=== PATIENT | female | born 1945 | race Caucasian/White ===

== ENCOUNTER 2018-07-26 12:42 | Outpatient (CLI) | payer OTHER | END 2018-07-26 12:43 | disposition home or self-care (01) | LOC: DTY/OP 12:42 | PROVIDERS: ATTEND Surgery | DX: E66.01 Morbid (severe) obesity due to excess calories (principal) | CPT/HCPCS: 97802 ==

== ENCOUNTER 2018-09-10 12:44 | Outpatient (CLI) | payer MEDICARE ==
--- NOTE | 2018-09-10 13:05 | RAD ---
RADIOGRAPH CHEST 2 VIEWS: DATE: 09/10/2018 HISTORY: 72-year-old female with dyspnea FINDINGS: There is no airspace density, pulmonary edema, pleural effusion, pneumothorax, or cardiomegaly. There is mild hyperinflation consistent with COPD. IMPRESSION: 1. No acute cardiopulmonary findings. 2. At least mild emphysema.
[2018-09-10 17:41] LABS: #Basophils 0.1 thou/uL (0.0-0.2); #Eosinphils 0.2 thou/uL (0.0-0.7); #Lymphocytes 3.3 thou/uL (1.20-3.40); #Monocytes 0.7 thou/uL (0.11-0.59); #Neutrophils 7.1 thou/uL (1.40-6.50); %Basophils 0.9 % (0.0-1.0); %Eosinophils 2.1 % (0.0-10.0); %Monocytes 5.9 % (0.0-10.0); %Neutrophils 62.1 % (42.0-75.0); Hemoglobin 14.3 g/dL (12.0-16.0); Mean Corpuscular HGB CONC 34.4 g/dL (32.0-36.0); Mean Corpuscular Volume 89.9 fL (78.0-98.0); Mean Platelet Volume 7.3 fL (7.4-10.4); Platelet Count 268 thou/uL (130-400); RBC Distribution Width 11.7 % (11.5-14.5); Red Blood Cell (RBC) Count 4.61 mill/uL (4.20-5.40); White Blood Cell (WBC) Count 11.4 thou/uL (4.8-10.8)
[2018-09-10 17:59] LABS: ALT (SGPT) 36 U/L (8-55); AST (SGOT) 29 U/L (5-34); Albumin 4.4 g/dL (3.4-4.8); Alkaline Phosphatase 94 U/L (40-150); Anion Gap 13 mmol/L (10-20); BUN (Urea Nitrogen) 14 mg/dL (9.8-20.1); Bilirubin, Total 0.5 mg/dL (0.2-1.2); Calc. Creatinine Clearance 0 mL/min (70-130); Calcium 10.1 mg/dL (7.8-10.44); Carbon Dioxide 29 mmol/L (23-31); Chloride 101 mmol/L (98-107); Estimated GFR-MDRD 50; Globulin 3.4 g/dL (2.4-3.5); Glucose 147 mg/dL (80-115); HDL Cholesterol 50 mg/dL (>60 Neg Risk); Protein, Total 7.8 g/dL (6.0-8.3); Sodium 139 mmol/L (136-145); Triglycerides 149 mg/dL (Less than 150)
[2018-09-10 18:12] LABS: Cholesterol 175 mg/dl (< 200 Desired)
[2018-09-10 18:22] LABS: Free T4 (Free Thyroxine) 1.01 ng/dL (0.70-1.48); Thyroid Stimulating Hormone 2.041 uIU/mL (0.35-4.94)
[2018-09-10 18:26] LABS: LDL Cholesterol, Calculated 95 mg/dL
[2018-09-10 20:32] LABS: Hemoglobin A1c 10.2 % (4.0-6.0)
[2018-09-10 20:39] LABS: Creatinine, Urine 203.11 mg/dL (47-110); Microalbumin/Creat Ratio 44.3 mg/g (Less than 30)
== END 2018-09-10 12:45 | disposition home or self-care (01) ==
LOC: RAD 12:44
PROVIDERS: ATTEND Internal Medicine
DX: R06.00 Dyspnea, unspecified (principal); J43.9 Emphysema, unspecified
CPT/HCPCS: 36415; 71046; 80053; 80061; 82043; 83036; 84439; 84443; 85025; 87521

== ENCOUNTER 2018-11-27 10:44 | Day surgery (SDC) | payer MEDICARE ==
--- NOTE | 2018-11-27 13:46 | OP ---
DATE OF PROCEDURE: 11/27/2018 PRIMARY CARE PHYSICIAN: Amandeep Mercer MD CONTACT LENS CURVE GRINDER SURGEON: None. PROCEDURES PERFORMED: Colonoscopy, surveillance, with snare polypectomy. INDICATION: Personal history of colon polyps, last colonoscopy was 20 years ago. MEDICATIONS: See Anesthesia record. FINDINGS: After discussion of the risks, benefits, and alternatives of the procedure, informed consent was obtained and witnessed. Pre-endoscopic cardiopulmonary examination was satisfactory. Time-out was performed before sedation was achieved. Sedation was achieved with Anesthesia assistance in the endoscopy unit. A digital rectal exam was performed, which was unremarkable. A Pentax adult colonoscope was inserted into the anus and passed forward to the cecum in the usual fashion. The cecal base was identified by the appendiceal orifice as well as the ileocecal valve. The terminal ileum was intubated and the ileal mucosa appeared normal. The colonoscope was slowly withdrawn in a gradual and circumferential manner with careful examination of the entire colonic mucosa. The quality of the prep was good. In the transverse colon, there were 2 small sessile polyps measuring 2 to 3 mm in diameter. These were completely removed with cold snare and retrieved for pathology. In the descending colon, there was another sessile polyp measuring 2 mm in diameter. This was completely removed with cold snare and retrieved for pathology. In the rectum, there was another sessile polyp measuring 3 mm in diameter. This was completely removed with cold snare and retrieved for pathology. Retroflexion in the rectum was unremarkable. The colonoscope was completely withdrawn and the patient allowed to recover. The patient tolerated the procedure well. There were no immediate postprocedure complications. IMPRESSION: 1. Two small transverse colon polyps, completely removed with cold snare and retrieved for pathology. 2. One small descending colon polyp, completely removed with cold snare and retrieved for pathology. 3. One small rectal polyp, completely removed with cold snare and retrieved for pathology. 4. Otherwise normal colonoscopy to the terminal ileum. RECOMMENDATIONS: 1. Follow up pathology on the colon polyps. 2. Repeat colonoscopy interval to be based on pathology results. 3. Discharge home on a regular diet. Job ID: [id number]
[2018-11-27] MEDS ORDERED: PHENYLEPHRINE-NS 100 MCG/ML 10 ML SYRINGE ONE (17:19)
[2018-11-27] MEDS ORDERED: PROPOFOL 200 MG/20 ML VIAL ONE (17:19)
== END 2018-11-27 13:50 | disposition home or self-care (01) ==
LOC: SDC 10:44
PROVIDERS: ATTEND Internal Medicine
PROC: 0DBM8ZZ Excision of Descending Colon, Via Natural or Artificial Opening Endoscopic (ICD-10-PCS; principal; 2018-11-27)
PROC: 0DBP8ZZ Excision of Rectum, Via Natural or Artificial Opening Endoscopic (ICD-10-PCS; 2018-11-27)
PROC: 0DBL8ZZ Excision of Transverse Colon, Via Natural or Artificial Opening Endoscopic (ICD-10-PCS; 2018-11-27)
DX: Z12.11 Encounter for screening for malignant neoplasm of colon (principal); K63.5 Polyp of colon; D12.3 Benign neoplasm of transverse colon; E78.5 Hyperlipidemia, unspecified; I10 Essential (primary) hypertension; I25.10 Atherosclerotic heart disease of native coronary artery without angina pectoris; I25.2 Old myocardial infarction; F17.200 Nicotine dependence, unspecified, uncomplicated; E11.9 Type 2 diabetes mellitus without complications; F32.9 Major depressive disorder, single episode, unspecified; G47.30 Sleep apnea, unspecified; Z88.5 Allergy status to narcotic agent; Z86.010 Personal history of colon polyps; Z99.89 Dependence on other enabling machines and devices; Z79.4 Long term (current) use of insulin; Z79.02 Long term (current) use of antithrombotics/antiplatelets; Z79.82 Long term (current) use of aspirin; Z79.899 Other long term (current) drug therapy
CPT/HCPCS: 36416; 88305; J2704

== ENCOUNTER 2019-04-21 13:12 | Observation (INO) | payer MEDICARE ==
--- NOTE | 2019-04-21 14:02 | RAD ---
PORTABLE UPRIGHT FRONTAL CHEST RADIOGRAPH: 04/21/2019 HISTORY: Intermittent chest pain. COMPARISON: 09/10/2018 FINDINGS: There is diffuse increased linear interstitial density and pulmonary hyperinflation, consistent with COPD and unchanged. No pneumothorax, pleural fluid, focal consolidation or alveolar edema. IMPRESSION: No acute findings. POS: WYATT
[2019-04-21 14:04] LABS: #Eosinphils 0.1 thou/uL (0.0-0.7); #Lymphocytes 2.2 thou/uL (1.20-3.40); #Monocytes 0.7 thou/uL (0.11-0.59); #Neutrophils 6.9 thou/uL (1.40-6.50); %Basophils 0.5 % (0.0-1.0); %Eosinophils 1.2 % (0.0-10.0); %Monocytes 6.9 % (0.0-10.0); %Neutrophils 69.4 % (42.0-75.0); Mean Corpuscular HGB CONC 34.6 g/dL (32.0-36.0); Mean Corpuscular Hemoglobin 32.1 pg (27.0-31.0); Mean Corpuscular Volume 92.7 fL (78.0-98.0); Mean Platelet Volume 7.9 fL (7.4-10.4); Platelet Count 249 thou/uL (130-400); RBC Distribution Width 11.7 % (11.5-14.5); Red Blood Cell (RBC) Count 4.35 mill/uL (4.20-5.40)
[2019-04-21] MEDS ORDERED: Aspirin Chewable 81 MG TAB ONE (14:16)
[2019-04-21 14:26] LABS: ALT (SGPT) 25 U/L (8-55); AST (SGOT) 21 U/L (5-34); Albumin 4.2 g/dL (3.4-4.8); Alkaline Phosphatase 76 U/L (40-110); Anion Gap 12 mmol/L (10-20); BUN (Urea Nitrogen) 13 mg/dL (9.8-20.1); Bilirubin, Total 0.5 mg/dL (0.2-1.2); Calc. Creatinine Clearance 0 mL/min (70-130); Carbon Dioxide 29 mmol/L (23-31); Chloride 100 mmol/L (98-107); Estimated GFR-MDRD 35; Globulin 2.5 g/dL (2.4-3.5); Glucose 254 mg/dL (83-110); Magnesium 1.9 mg/dL (1.6-2.6); Potassium 4.3 mmol/L (3.5-5.1); Protein, Total 6.7 g/dL (6.0-8.3); Sodium 137 mmol/L (136-145)
[2019-04-21] MEDS ORDERED: HYDROcodone/Acetaminophen 7.5/325 mg Tablet PO PRN ×2 (17:12)
[2019-04-21] MEDS ORDERED: Acetaminophen 325 MG TAB PO PRN (17:12)
[2019-04-21] MEDS ORDERED: Senokot S 8.6-50 MG TAB PO PRN (17:12)
[2019-04-21] MEDS ORDERED: Sodium Chloride 0.9% 1,000 ML IV SCH (17:15)
[2019-04-21] MEDS ORDERED: Dextrose 5% in Water 1,000 ML IV PRN (17:19)
[2019-04-21] MEDS ORDERED: Dextrose 50% Abboject 50 ML SYRINGE SLOW IVP PRN (17:19)
[2019-04-21 17:35] VITALS: BMI 38.7
[2019-04-21 17:35] LABS: Troponin I 0.013 ng/mL (< 0.028)
--- NOTE | 2019-04-21 17:55 | PDOC.HHP ---
Hospitalist HPI - History of Present Illness Intermittent chest pain and back pain x3 days History of Present Illness: 73F presents to the ED today the c/o of 3 days of sharp chest pain and pain in her shoulders which radiates outward. Reports it started 3 days. Denies any precipating factors. Reports history of CAD, AR x2 and 2 cardiac stents. Reports pain is somewhat similar to one of her MIs. Denies nausea or diaphoresis. Reports pain is intermittent, has woken her up from sleep. Reports history of muscles spasms and current pain is different. Denies abdominal pain, v/d. Reports hx of COPD and uses inhaler, and uses O2 at home. PMH: DM II, CAD, COPD, HTN, hyperlipidemia, muscle spasms, angina, depression, RANDY ED Course: EKG: NSR, 78, Incomplete right bundle branch block, t waves normal First troponin undetectable, VERNA, Will admit for chest pain, ACS r/o Hospitalist ROS - Review of Systems Constitutional: denies: fever, chills, sweats, weakness, malaise, other Eyes: denies: pain, vision change, conjunctivae inflammation, eyelid inflammation, redness, other ENT: denies: ear pain, ear discharge, nose pain, nose discharge, nose congestion , mouth pain, mouth swelling, throat pain, throat swelling, other Respiratory: reports: cough, shortness of breath Cardiovascular: reports: chest pain Gastrointestinal: denies: nausea, vomiting, abdominal pain, diarrhea, constipation, melena, hematochezia, other Genitourinary: denies: dysuria, frequency, incontinence, hematuria, retention, other Musculoskeletal: reports: shoulder pain (bilateral, pain under scapula, intermittent) Skin: denies: rash, lesions, isacc, bruising, other Neurological: denies: weakness, numbness, incoordination, change in speech, confusion, seizures, other - Medication Medications: HumuLIN L MonApr 21, 2019 14:22 suspension : Strength - 100 unit/mL : SUBCUTANEOUS Patient Dose: unk. clopidogrel MonApr 21, 2019 14:22 tablet : Strength - 75 mg : ORAL Patient Dose: unk. citalopram MonApr 21, 2019 14:22 tablet : Strength - 10 mg : ORAL Patient Dose: unk. lisinopril MonApr 21, 2019 14:23 tablet : Strength - 10 mg : ORAL Patient Dose: unk. ProAir HFA MonApr 21, 2019 14:24 HFA aerosol inhaler : Strength - 90 mcg : INHALATION Patient Dose: unk. aspirin oral MonApr 21, 2019 14:25 tablet : Strength - 325 mg : ORAL Patient Dose: 1 tab(s) Oral once a day (at bedtime). Nitro oral MonApr 21, 2019 14:40 capsule, extended release : Strength - 2.5 mg : ORAL Patient Dose: unk. Hospitalist History - Past Medical History Cardiac: reports: CAD, HTN, Hyperlipidemia Pulmonary: reports: angina, asthma, COPD, high cholesterol, hypertension, lung disease Gastrointestinal: reports: Other (polyps) Heme/Onc: reports: B12 deficiency Psych: reports: Depression Musculoskeletal: denies: no pertinent history, Chronic low back pain, Bursitis, Osteoarthritis, Other Endocrine: reports: Diabetes - Past Surgical History Past Surgical History: reports: Cataract Removal, Tonsillectomy Other Surgical History: colonscopy, cardiac stent x2, right wrist surgery, Heart cath 2016, - Family History Family History: reports: cardiac disorder, cerebrovascular accident, diabetes mellitus, hypertension - Social History Smoking Status: Former smoker Alcohol: reports: Occassional Drugs: reports: none Living Situation: With Family Activity level: independent ambulation - Exam General Appearance: awake alert Eye: PERRL ENT: normocephalic atraumatic, moist mucosa Neck: supple, no JVD Heart: RRR, normal peripheral pulses Respiratory: CTAB, normal chest expansion Gastrointestinal: soft, non-tender Extremities: no edema Skin: normal turgor Neurological: normal sensation to touch, no focal deficits Musculoskeletal: normal tone, normal strength Psychiatric: normal affect, A&O x 3 Hospitalist Results - Labs Result Diagrams: 04/21/19 13:54 04/21/19 13:54 Lab results: WBC 10.0 thou/uL (4.8-10.8) 04/21/19 13:54 Hgb 14.0 g/dL (12.0-16.0) 04/21/19 13:54 Hct 40.4 % (36.0-47.0) 04/21/19 13:54 MCV 92.7 fL (78.0-98.0) 04/21/19 13:54 Plt Count 249 thou/uL (130-400) 04/21/19 13:54 Neutrophils % 69.4 % (42.0-75.0) 04/21/19 13:54 Sodium 137 mmol/L (136-145) 04/21/19 13:54 Potassium 4.3 mmol/L (3.5-5.1) 04/21/19 13:54 Chloride 100 mmol/L (98-107) 04/21/19 13:54 Carbon Dioxide 29 mmol/L (23-31) 04/21/19 13:54 BUN 13 mg/dL (9.8-20.1) 04/21/19 13:54 Creatinine 1.46 mg/dL (0.6-1.1) H 04/21/19 13:54 Glucose 254 mg/dL (83-110) H 04/21/19 13:54 Calcium 9.0 mg/dL (7.8-10.44) 04/21/19 13:54 Total Bilirubin 0.5 mg/dL (0.2-1.2) 04/21/19 13:54 AST 21 U/L (5-34) 04/21/19 13:54 ALT 25 U/L (8-55) 04/21/19 13:54 Alkaline Phosphatase 76 U/L (40-110) 04/21/19 13:54 Troponin I 0.013 ng/mL (< 0.028) 04/21/19 16:53 Serum Total Protein 6.7 g/dL (6.0-8.3) 04/21/19 13:54 Albumin 4.2 g/dL (3.4-4.8) 04/21/19 13:54 Hospitalist H&P A/P - Problem (1) Chest pain Code(s): R07.9 - CHEST PAIN, UNSPECIFIED Status: Acute (2) Dyslipidemia Code(s): E78.5 - HYPERLIPIDEMIA, UNSPECIFIED Status: Chronic (3) Hypertension Code(s): I10 - ESSENTIAL (PRIMARY) HYPERTENSION Status: Chronic (4) COPD (chronic obstructive pulmonary disease) Status: Chronic (5) VERNA (acute kidney injury) Code(s): N17.9 - ACUTE KIDNEY FAILURE, UNSPECIFIED Status: Acute (6) CAD (coronary artery disease) Code(s): I25.10 - ATHSCL HEART DISEASE OF [place] CORONARY ARTERY W/O ANG PCTRS Status: Chronic (7) RANDY (obstructive sleep apnea) Code(s): G47.33 - OBSTRUCTIVE SLEEP APNEA (ADULT) (PEDIATRIC) Status: Chronic (8) Depression Code(s): F32.9 - MAJOR DEPRESSIVE DISORDER, SINGLE EPISODE, UNSPECIFIED Status : Chronic - Plan Plan: Chest pain: Trend troponins, heart monitor, ASA, fasting lipids, TSH, consult cardiology, patient had a negative stress test within last year Continue home meds once reconciled VERNA: gentle hydration, hold lisinopril COPD/Asthma: Duonebs as needed PRN, O2 as needed to keep PO2 above 92 DM II: accuchecks ACHS, SS for coverage HTN: hold lisinopril, PRN meds as needed Dyslipidemia: will restart crestor, check lipids Discussed with Dr. Summers, agrees with plan
[2019-04-21] MEDS ORDERED: PROVENTIL INHALER 6.7 G (200 INHALATIONS) INH PRN (18:41)
[2019-04-21] MEDS ORDERED: Melatonin 3 MG TAB PO PRN (18:42)
[2019-04-21] MEDS ORDERED: Sodium Chloride 0.65% Nasal 44 ML BOT EA NARE PRN (19:51)
[2019-04-21] MEDS: guaiFENesin/DM ER PO SCH (20:28)
[2019-04-21] MEDS: Heparin 5,000 UNITS/ML VIAL SC SCH (20:29)
[2019-04-21 20:41] LABS: Troponin I 0.019 ng/mL (< 0.028)
[2019-04-22 05:03] LABS: #Basophils 0.1 thou/uL (0.0-0.2); #Eosinphils 0.2 thou/uL (0.0-0.7); #Lymphocytes 3.2 thou/uL (1.20-3.40); #Monocytes 0.8 thou/uL (0.11-0.59); #Neutrophils 4.7 thou/uL (1.40-6.50); %Basophils 0.9 % (0.0-1.0); %Eosinophils 2.4 % (0.0-10.0); %Lymphocytes 35.9 % (21.0-51.0); %Monocytes 8.8 % (0.0-10.0); Hemoglobin 13.3 g/dL (12.0-16.0); Mean Corpuscular HGB CONC 33.8 g/dL (32.0-36.0); Mean Corpuscular Hemoglobin 30.9 pg (27.0-31.0); Mean Corpuscular Volume 91.3 fL (78.0-98.0); Mean Platelet Volume 7.9 fL (7.4-10.4); Platelet Count 238 thou/uL (130-400); RBC Distribution Width 11.7 % (11.5-14.5); Red Blood Cell (RBC) Count 4.32 mill/uL (4.20-5.40)
[2019-04-22 06:01] LABS: ALT (SGPT) 24 U/L (8-55); AST (SGOT) 19 U/L (5-34); Albumin 3.8 g/dL (3.4-4.8); Alkaline Phosphatase 72 U/L (40-110); Anion Gap 15 mmol/L (10-20); BUN (Urea Nitrogen) 13 mg/dL (9.8-20.1); Bilirubin, Total 0.6 mg/dL (0.2-1.2); Calc. Creatinine Clearance 83 mL/min (70-130); Calcium 8.8 mg/dL (7.8-10.44); Carbon Dioxide 24 mmol/L (23-31); Cardiac Risk 7.2 (Less than 4.5); Chloride 103 mmol/L (98-107); Cholesterol 237 mg/dl (< 200 Desired); Estimated GFR-MDRD 51; Globulin 2.5 g/dL (2.4-3.5); Glucose 176 mg/dL (83-110); HDL Cholesterol 33 mg/dL (>60 Neg Risk); LDL Cholesterol, Calculated 151 mg/dL; Potassium 3.8 mmol/L (3.5-5.1); Protein, Total 6.3 g/dL (6.0-8.3); Sodium 138 mmol/L (136-145); Triglycerides 266 mg/dL (Less than 150)
[2019-04-22] MEDS: guaiFENesin/DM ER PO SCH ×2 (07:39→22:36)
[2019-04-22] MEDS: Famotidine 20 MG TAB PO SCH (07:40)
[2019-04-22] MEDS: Heparin 5,000 UNITS/ML VIAL SC SCH ×3 (07:41→22:36)
[2019-04-22 08:37] LABS: Bilirubin Negative (Negative); Blood, Urine Negative (Negative); Clarity Clear (Clear); Glucose, Urine (Dipstick) Normal (Negative); Leukocyte Negative Leu/uL (Negative); Nitrite Negative (Negative); Protein, Urine (Dipstick) Negative (Neg-Trace); RBC/HPF 0-3 HPF (0-3); Squamous Epithelial 0-3 HPF (0-3); Urobilinogen Normal mg/dL (Less than 2); WBC/HPF 0-3 HPF (0-3)
[2019-04-22 08:39] LABS: Bacteria/HPF 1+ HPF (None Seen)
[2019-04-22 08:41] LABS: Urine Culture Reflex Yes Yes
--- NOTE | 2019-04-22 16:12 | PDOC.HOSPP ---
- Subjective Encounter Date: 04/22/19 Encounter Time: 16:15 Subjective: f/u for CP r/o undergoing 2-day FIRE CONTROL OFFICER. No new complaints. - Objective Vital Signs & Weight: Vital Signs (12 hours) Temp Pulse Resp BP Pulse Ox 04/22/19 10:48 98 F 72 20 161/70 H 96 04/22/19 07:42 97.9 F 83 24 H 144/86 H 92 L Weight Weight 240 lb 5 oz I&O: 04/21/19 04/22/19 04/23/19 06:59 06:59 06:59 Intake Total 1392 Output Total 1900 Balance -508 Result Diagrams: 04/22/19 04:16 04/22/19 04:16 Additional Labs: Accuchecks 04/22/19 04/21/19 10:50 20:38 POC Glucose 220 H 231 H Laboratory Tests 04/21/19 04/21/19 04/21/19 13:54 13:54 16:53 Magnesium 1.9 Troponin I 0.013 0.013 Triglycerides Cholesterol LDL Cholesterol, Calc HDL Cholesterol TSH 3rd Generation 04/21/19 04/22/19 04/22/19 19:48 04:16 04:16 Magnesium Troponin I 0.019 Triglycerides 266 H Cholesterol 237 H LDL Cholesterol, Calc 151 HDL Cholesterol 33 TSH 3rd Generation [id number] Radiology Reviewed by me: Yes (PCXR - diffuse chronic changes consistent with COPD) EKG Reviewed by me: Yes (Tele - SR) Hospitalist ROS - Medication Medications: Active Medications Generic Name Dose Route Start Last Admin Trade Name Freq PRN Reason Stop Dose Admin Albuterol/Ipratropium 3 ml 04/22/19 13:00 04/22/19 13:54 Duoneb IPPB Not Given U8BV-RH DAVID Famotidine 20 mg 04/22/19 09:00 04/22/19 07:40 Pepcid PO 20 mg DAILY DAVID Administration Guaifenesin/Dextromethorphan 1 tab 04/21/19 21:00 04/22/19 07:39 Mucinex Dm PO 1 tab Q12HR DAVID Administration Heparin Sodium (Porcine) 5,000 units 04/21/19 21:00 04/22/19 15:23 Heparin SC Not Given TID DAVID Melatonin 3 mg 04/21/19 18:42 04/21/19 21:52 Melatonin PO 3 mg HSPRN PRN Administration Insomnia Sodium Chloride 0.5 ml 04/21/19 19:51 04/21/19 20:25 [place] Nasal [place] 0.65% EA NARE 2 sprays TIDPRN PRN Administration Nasal Congestion - Exam General Appearance: NAD, awake alert Eye: PERRL, anicteric sclera ENT: normocephalic atraumatic, no oropharyngeal lesions Neck: supple, symmetric, no JVD, no thyromegaly, no carotid bruit Respiratory - other findings: diminished in bases bilat Gastrointestinal: soft, non-tender, non-distended, normal bowel sounds, no palpable masses Extremities: no cyanosis, no clubbing, no edema Skin: normal turgor, no lesions Neurological: cranial nerve grossly intact, no new deficit Musculoskeletal: normal tone, normal strength Psychiatric: normal affect, A&O x 3 Hosp A/P (1) Chest pain Code(s): R07.9 - CHEST PAIN, UNSPECIFIED Status: Acute Plan: 2-day FIRE CONTROL OFFICER pending, continue telemetry monitoring (2) VERNA (acute kidney injury) Code(s): N17.9 - ACUTE KIDNEY FAILURE, UNSPECIFIED Status: Acute Plan: Improved, likely mild dehydration, avoid nephrotoxic meds and limit contrast exposure (3) Chronic respiratory failure with hypoxia Code(s): J96.11 - CHRONIC RESPIRATORY FAILURE WITH HYPOXIA Status: Chronic Plan: Continue O2 supplementation at baseline requirement currently (4) CAD (coronary artery disease) Code(s): I25.10 - ATHSCL HEART DISEASE OF [place] CORONARY ARTERY W/O ANG PCTRS Status: Chronic Plan: FIRE CONTROL OFFICER 2-day protocol pending (5) COPD (chronic obstructive pulmonary disease) Status: Chronic Plan: No exacerbation (6) Hypertension Code(s): I10 - ESSENTIAL (PRIMARY) HYPERTENSION Status: Chronic Qualifiers: Hypertension type: essential hypertension Qualified Code(s): I10 - Essential (primary) hypertension - Plan plan discussed w/ family, respiratory therapy, out of bed/ambulate, DVT proph w/ SCDs Stable currently Continue 2-Day FIRE CONTROL OFFICER protocol Continue Plavix 75mg daily Resume home DM meds
--- NOTE | 2019-04-22 16:53 | CON ---
DATE OF CONSULTATION: HISTORY OF PRESENT ILLNESS: Alexy Rod is a 73-year-old white female with coronary artery disease, admitted with upper back and chest discomfort. She was evaluated by Dr. Mancilla in June 2007. She had chest discomfort and had had an abnormal Cardiolite scan. She underwent cardiac catheterization, was found to have subtotal mid right coronary artery occlusion. However, the distal posterior descending artery filled retrograde from the left system. It was felt best to treat her medically with excellent collaterals to the right system. She apparently did not follow up with Dr. Mancilla after that, but was followed by a independent driver in [place]. In November 2015, she underwent placement of a stent in the second obtuse marginal and in the left anterior descending. The right coronary was apparently totally occluded at that time. All of this information is from previous physician descriptions, I do not have the actual cath report. In January 2017, she had a Cardiolite which revealed apical-inferior ischemia. One of physician report states that she underwent cardiac catheterization, but no intervention at that time; however, the patient does not recall having a catheterization at that time. In April 2018, she began to be followed by Dr. Lin. Echo at that time revealed ejection fraction of 55% to 60% with trace mitral regurgitation and physiologic tricuspid regurgitation. She underwent cardiac PET scan, which was probably normal. She now is admitted with 3 days of increasing upper back and chest discomfort. Today, she states that her chest is not bothering her, it is mostly her upper back. She describes as somewhat of a pressure sensation in her upper back in multiple areas. The pain is not pleuritic in nature. It is not exacerbated by movement. The discomfort will last a few seconds to one or 2 minutes. She also complains of sharp stabbing pain in front of her chest, which is not occurring today. This discomfort will last for a few seconds at a time. Cardiac enzymes have been unremarkable. PAST MEDICAL HISTORY: Hypertension, hyperlipidemia (Crestor was stopped several months ago due to muscle spasm, however, she states that muscle spasm did not improve after stopping the Crestor), asthma, coronary artery disease, obstructive sleep apnea, COPD, diabetes. OPERATIONS: Tonsillectomy, right ganglion cyst removal, stent placement in the second obtuse marginal and the LAD, cataract removal. MEDICATIONS: 1. Albuterol 1 puff q.4 hours p.r.n. 2. Aspirin 81 daily. 3. Clopidogrel 75 mg daily. 4. Citalopram 40 mg q.p.m. 5. Furosemide 20 q.a.m. 6. Tradjenta 5 mg daily. 7. Lisinopril 10 mg daily. 8. Singulair 10 mg at bedtime. 9. NPH 80 units at bedtime. 10. Primidone 50 b.i.d. ALLERGIES: DARVON. SOCIAL HISTORY: Smoked one pack per day, but states she stopped 4 years ago. She does not drink. PHYSICAL EXAMINATION: VITAL SIGNS: Blood pressure 161/70, pulse 72. HEENT: PERRL. NECK: Supple. CHEST: Reveals distant breath sounds. CARDIOVASCULAR: S1, S2 normal without any S3, S4, or murmurs. Carotid upstrokes normal without bruits. ABDOMEN: Obese. Normal bowel sounds. No tenderness. EXTREMITIES: Revealed no clubbing, cyanosis, or edema. NEUROLOGIC: Grossly intact. SKIN: Warm and dry. MUSCULOSKELETAL: Revealed no palpable back or chest wall tenderness. LABORATORY DATA: EKG reveals normal sinus rhythm with anteroseptal infarction similar to office EKG. Cardiac enzymes were unremarkable. CBC is normal. Sodium 138, potassium 3.8, chloride 108, carbon dioxide 24, BUN 13, creatinine 1.07. Cholesterol 237, triglycerides 266, HDL 33, LDL 151. TSH is normal. IMPRESSION: 1. Atypical chest and upper back discomfort with pain lasting a few seconds to one or 2 minutes. 2. History of coronary artery disease, status post stent placement in November 2015 in the second obtuse marginal and the LAD. Also at that time, the right coronary artery was totally occluded. 3. Probably normal cardiac PET in April 2018. 4. Hypertension. 5. Hypercholesterolemia under poor control, off Crestor for some time; however, her muscle spasms did not improve. 6. Diabetes. 7. Former smoker. 8. Obstructive sleep apnea. 9. Chronic obstructive pulmonary disease. PLAN: Ms. Rod's chest and upper back discomfort are atypical and she does have normal cardiac enzymes. She will undergo Lexiscan Cardiolite testing for further evaluation. Her usual independent driver, Dr. Lin will return in the morning. Job ID: [id number] [facility]
[2019-04-22] MEDS: HumaLOG 300 UNITS/3 ML VIAL SC PRN (17:07)
[2019-04-22] MEDS ORDERED: Regadenoson 0.4 MG/5 ML SYRINGE ONE (17:29)
[2019-04-22] MEDS ORDERED: Citalopram 20 MG TAB PO SCH (21:00)
[2019-04-22] MEDS ORDERED: Montelukast Sodium 10 mg Tablet PO SCH (21:00)
[2019-04-22] MEDS ORDERED: Rosuvastatin 20 MG TAB PO SCH (21:00)
[2019-04-22] MEDS: Primidone 50 MG TAB PO SCH (22:36)
[2019-04-23 05:00] LABS: Anion Gap 13 mmol/L (10-20); BUN (Urea Nitrogen) 12 mg/dL (9.8-20.1); Calc. Creatinine Clearance 77 mL/min (70-130); Calcium 8.9 mg/dL (7.8-10.44); Carbon Dioxide 26 mmol/L (23-31); Chloride 101 mmol/L (98-107); Estimated GFR-MDRD 47; Glucose 285 mg/dL (83-110); Potassium 4.2 mmol/L (3.5-5.1); Sodium 136 mmol/L (136-145)
[2019-04-23] MEDS: HumaLOG 300 UNITS/3 ML VIAL SC PRN ×2 (06:34→11:34)
[2019-04-23] MEDS ORDERED: Alogliptin 25 MG TAB PO SCH (09:00)
[2019-04-23] MEDS ORDERED: Clopidogrel Bisulfate 75 MG TAB PO SCH (09:00)
[2019-04-23] MEDS: Primidone 50 MG TAB PO SCH (09:03)
[2019-04-23] MEDS: Famotidine 20 MG TAB PO SCH (09:03)
[2019-04-23] MEDS: guaiFENesin/DM ER PO SCH (09:04)
[2019-04-23] MEDS: Heparin 5,000 UNITS/ML VIAL SC SCH (09:04)
--- NOTE | 2019-04-23 09:11 | NM ---
Nuclear medicine Cardiac myocardial perfusion SPECT Ejection fraction study Wall motion cine: DATE:04/22/2019 12:36 PM INDICATION: Chest pain TECHNIQUE: Number of days:2 Rest Study: Technetium 99m-sestamibi (Cardiolite) dose:33.00 mCi Stress study: Technetium 99m-sestamibi (Cardiolite) dose:31.80 mCi FINDINGS: Cardiac (myocardial perfusion) SPECT No reversible myocardial perfusion defect is evident. There is a mild-sized fixed defect involving th e left ventricular apex on both the stress and rest images likely related to overlying soft tissue attenuation. Ejection fraction study Left ventricular EF = 76% Wall motion cine Normal wall motion and thickening IMPRESSION: Probably normal myocardial perfusion evaluation. No definite scintigraphic evidence of reversible myocardial ischemia. Mild-sized fixed defect involvi ng the left ventricular apex on both the rest and stress images is likely related to overlying soft tissue attenuation. The estimated LVEF is 76%.
[2019-04-23 11:39] VITALS: BP 133/59; TEMP 98.1
--- NOTE | 2019-04-24 01:43 | DIS ---
DATE OF ADMISSION: 04/21/2019 DATE OF DISCHARGE: 04/23/2019 DISCHARGE DIAGNOSES: 1. Chest pain secondary to musculoskeletal etiology. 2. Acute kidney injury on chronic kidney disease, stage 3. 3. Chronic hypoxic respiratory failure on chronic oxygen supplementation at 2 to 3 L/minute by nasal cannula. 4. Coronary artery disease, chronic and stable. 5. Chronic obstructive pulmonary disease, stable. 6. Hypertension, stable. 7. Hyperlipidemia, uncontrolled. CONSULTATIONS: Dr. Romero and Dr. Lin with Cardiology Service. PERTINENT LABORATORY AND X-RAY FINDINGS: Creatinine ranged between 1.07 to 1.46. Estimated GFR ranged between 35-51. Troponin I negative x3. Total cholesterol 237, triglycerides 266, HDL 33, LDL 151. TSH 3.92. CBC within normal limits. Urine culture dated 04/22/2019 showed no growth at 24 hours. Portable chest x-ray dated 04/21/2019 showed no acute cardiopulmonary process. Cardiolite stress test dated 04/22/2019 showed mild sized fixed defect in the left ventricular apex consistent with breast attenuation, calculated ejection fraction of 76%. HOSPITAL COURSE: The patient was observed on the telemetry unit after initially presenting with chest and back pain. The patient with a known history of coronary artery disease, on chronic Plavix, undergoing serial cardiac biomarkers, which were negative x3. The patient proceeded to Cardiolite stress testing showing a fixed defect at the left ventricular apex, likely due to breast attenuation artifact. Consultation was obtained by the Cardiology Service with recommendations for ongoing medical management and no acute intervention. The patient was initiated on Crestor 20 mg daily with recommendations for dietary management in addition to medical therapy. Vital signs remained stable throughout the hospital course and the patient continued on her baseline oxygen requirement at 2 L/minute by nasal cannula continuously. I have examined the patient at the time of discharge and discussed followup instructions. The patient overall clinically stable and ready for discharge on 04/23/2019. DISCHARGE MEDICATIONS: 1. ProAir HFA one puff inhaled q.4 hours p.r.n. 2. Citalopram 40 mg p.o. at bedtime. 3. Plavix 75 mg p.o. daily. 4. Lasix 20 mg p.o. q.a.m., hold for 72 hours. 5. Tradjenta 5 mg p.o. daily. 6. Lisinopril 10 mg p.o. daily, hold x72 hours. 7. Singulair 10 mg p.o. at bedtime. 8. NPH insulin 80 units subcutaneously at bedtime. 9. Primidone 50 mg p.o. b.i.d. 10. Crestor 20 mg p.o. at bedtime. FOLLOWUP: 1. The patient may follow up with her primary care provider, Dr. Amandeep Mercer within 7 to 10 days of discharge. 2. The patient will follow up with Dr. David Lin within 1 week. CONDITION ON DISCHARGE: Stable. ACTIVITY: [place]. DIET: Heart healthy and ADA. CODE STATUS: Full. DISPOSITION: To home on 04/23/2019. Job ID: [id number]
[2019-04-24] MEDS ORDERED: Isosorbide Mononitrate (ER) 30 MG TAB PO SCH (09:00)
== END 2019-04-23 14:30 | disposition home or self-care (01) ==
LOC: ERS 13:12 → 2SW 17:28
PROVIDERS: ADMIT Internal Medicine; ATTEND Internal Medicine
DX: R07.89 Other chest pain (principal); I12.9 Hypertensive chronic kidney disease with stage 1 through stage 4 chronic kidney disease, or unspecified chronic kidney disease; N18.3 Chronic kidney disease, stage 3 (moderate); N17.9 Acute kidney failure, unspecified; I25.10 Atherosclerotic heart disease of native coronary artery without angina pectoris; E11.9 Type 2 diabetes mellitus without complications; E78.00 Pure hypercholesterolemia, unspecified; E78.5 Hyperlipidemia, unspecified; G47.33 Obstructive sleep apnea (adult) (pediatric); J96.11 Chronic respiratory failure with hypoxia; J44.9 Chronic obstructive pulmonary disease, unspecified; Z79.82 Long term (current) use of aspirin; Z79.84 Long term (current) use of oral hypoglycemic drugs; Z79.899 Other long term (current) drug therapy; Z88.5 Allergy status to narcotic agent; Z87.891 Personal history of nicotine dependence
CPT/HCPCS: 71045; 78452; 80048; 80053; 80061; 81001; 82962 ×3; 83735; 84484 ×2; 85025; 87086; 93005; 93017; 94640 ×4; 96360; 96361 ×2; 96372 ×2; 97139; 99285; A9500; G0378 ×4; 36415; 36416; 84443; J1644; J2785; J7620

== ENCOUNTER 2019-11-01 12:41 | Observation (INO) | payer MEDICARE, OTHER ==
[2019-11-01 13:09] LABS: #Basophils 0.1 thou/uL (0.0-0.2); #Eosinphils 0.1 thou/uL (0.0-0.7); #Lymphocytes 1.6 thou/uL (1.20-3.40); #Neutrophils 8.6 thou/uL (1.40-6.50); %Basophils 0.5 % (0.0-1.0); %Eosinophils 1.3 % (0.0-10.0); %Lymphocytes 14.3 % (21.0-51.0); %Monocytes 8.8 % (0.0-10.0); %Neutrophils 75.2 % (42.0-75.0); Hemoglobin 14.1 g/dL (12.0-16.0); Mean Corpuscular HGB CONC 34.3 g/dL (32.0-36.0); Mean Corpuscular Volume 90.2 fL (78.0-98.0); Mean Platelet Volume 7.9 fL (7.4-10.4); Platelet Count 226 thou/uL (130-400); RBC Distribution Width 11.6 % (11.5-14.5); Red Blood Cell (RBC) Count 4.54 mill/uL (4.20-5.40); White Blood Cell (WBC) Count 11.4 thou/uL (4.8-10.8)
[2019-11-01] MEDS ORDERED: methylPREDNISolone Sod Succ/PF 125 MG/2 ML VIAL ONE (13:17)
[2019-11-01] MEDS ORDERED: Magnesium 2 GM/50 ML BAG (IN WATER) ONE (13:17)
[2019-11-01 13:28] LABS: ALT (SGPT) 25 U/L (8-55); AST (SGOT) 20 U/L (5-34); Albumin 4.3 g/dL (3.4-4.8); Alkaline Phosphatase 80 U/L (40-110); Anion Gap 11 mmol/L (10-20); BUN (Urea Nitrogen) 14 mg/dL (9.8-20.1); Bilirubin, Total 0.5 mg/dL (0.2-1.2); CK (CPK) 365 U/L (29-168); Calc. Creatinine Clearance 0 mL/min (70-130); Carbon Dioxide 28 mmol/L (23-31); Chloride 99 mmol/L (98-107); Estimated GFR-MDRD 43; Globulin 2.9 g/dL (2.4-3.5); Glucose 293 mg/dL (83-110); Potassium 4.5 mmol/L (3.5-5.1); Protein, Total 7.2 g/dL (6.0-8.3); Sodium 133 mmol/L (136-145)
--- NOTE | 2019-11-01 14:17 | RAD ---
CHEST ONE VIEW: 11/01/19 INDICATIONS: Chest pain, shortness of breath. COMPARISON: Prior exam dated 04/21/19. IMPRESSION: No definite acute cardiopulmonary abnormality is evident. The examination does not appear appreciably changed from the comparison study. POS: BH
[2019-11-01 14:45] LABS: Actual Bicarbonate (HCO3a) 24.5 mEq/L (22-28); Analyzer IN Cardio ER; Base Excess (BEa) -0.3 mEq/L (-2.0 to +3.0); CO2 Tension 40.8 mmHg (35.0-45.0); Calcium, Ionized (arterial) 1.17 mmol/L (1.12-1.30); Carboxyhemoglobin (COHb) 0.5 gm% (0.0-3.0); Hemoglobin (Hb) 14.2 g/dL (12.0-16.0); O2 Tension (PaO2), arterial 144.4 mmHg (> 70.0); Potassium - ABG Lab 4.59 mmol/L (3.70-5.30)
[2019-11-01] MEDS ORDERED: Albuterol 200 PUFF (6.7GM INHALER) ONE (15:18)
[2019-11-01] MEDS ORDERED: Aspirin Chewable 81 MG TAB ONE (15:18)
[2019-11-01 15:42] LABS: Puncture Site RRA
[2019-11-01 16:17] LABS: Troponin I 0.022 ng/mL (< 0.028)
[2019-11-01 18:01] LABS: SARS-CoV-2 NAA Rapid Test Not Detected (NotDetected)
[2019-11-01] MEDS ORDERED: Acetaminophen 325 MG TAB PO PRN ×2 (18:23→22:45)
--- NOTE | 2019-11-01 18:30 | PDOC.HHP ---
Hospitalist HPI - History of Present Illness Chest pain History of Present Illness: This patient is a 73-year-old female with a history of significant COPD. Patient was admitted to this facility in April for chest pain. During that admission the patient had a negative stress test and was felt to have more likely musculoskeletal type chest pain. Patient reports she was feeling fine until she awoke at approximately 4 AM. She reported pain across her upper chest near her clavicles extending further down into her chest and radiating toward her back. At that time the pain was fairly severe but now, 16 hours later, it has diminished substantially and there is only a small remnant left. She does have chronic shortness of breath due to severe oxygen dependent COPD. She did not feel like it was substantially worse related to this pain. She does report that her pain was worse this with attempts at deep breaths. She has not had significant cough. No fevers or chills. No COVID exposures. ED Course: COVID test was negative. Troponin and EKG are unremarkable. Chest x-ray was initially interpreted by the ER provider is concerning for pneumonia and the patient did receive Levaquin. However, official read of the x-ray shows no significant change from her previous image. Hospitalist ROS - Review of Systems Constitutional: denies: fever, chills Respiratory: reports: shortness of breath, SOB with excertion. denies: cough Cardiovascular: reports: chest pain. denies: palpitations, orthopnea Gastrointestinal: denies: nausea, vomiting, abdominal pain Genitourinary: denies: dysuria, frequency All other systems reviewed; all pertinent +/- noted in HPI/Subj - Medication Medications: HumuLIN L suspension : Strength - 100 unit/mL : SUBCUTANEOUS Patient Dose: unk. clopidogrel tablet : Strength - 75 mg : ORAL Patient Dose: Daily. citalopram tablet : Strength - 10 mg : ORAL Patient Dose: Daily. lisinopril tablet : Strength - 10 mg : ORAL Patient Dose: Daily. ProAir HFA HFA aerosol inhaler : Strength - 90 mcg : INHALATION Patient Dose: 2 Puffs Q4 HR prn SOB aspirin oral tablet : Strength - 325 mg : ORAL Patient Dose: 1 tab(s) Oral once a day (at bedtime). Nitro oral capsule, extended release : Strength - 2.5 mg : ORAL Patient Dose: unk. Hospitalist History - Past Medical History Source: patient Heme/Onc: reports: B12 deficiency Psych: reports: Depression Endocrine: reports: Diabetes - Past Surgical History Past Surgical History: reports: Cataract Removal, Tonsillectomy - Social History Alcohol: reports: Occassional Drugs: reports: none - Exam General Appearance: NAD, awake alert General - other findings: Morbidly obese. Slightly tachypneic. Neck: supple, symmetric, no JVD, no thyromegaly, no lymphadenopathy, no carotid bruit Heart: RRR, no murmur, no gallops, no rubs, normal peripheral pulses Respiratory: CTAB, no wheezes, no rales, no ronchi, normal chest expansion, no tachypnea, normal percussion Respiratory - other findings: Diminished Gastrointestinal: soft, non-distended, normal bowel sounds, no palpable masses, no hepatomegaly, no splenomegaly, tender to palpation (Very mild in the right upper quadrant.) Extremities: no cyanosis, no clubbing, no edema Skin: normal turgor, no lesions, no rashes Neurological: cranial nerve grossly intact, normal sensation to touch, no weakness, no focal deficits, no new deficit Musculoskeletal: normal tone, normal strength, no muscle wasting Psychiatric: normal affect, normal behavior, A&O x 3 Hospitalist Results - Labs Result Diagrams: 11/01/19 12:55 11/01/19 12:55 Lab results: WBC 11.4 thou/uL (4.8-10.8) H 11/01/19 12:55 Hgb 14.1 g/dL (12.0-16.0) 11/01/19 12:55 Hct 40.9 % (36.0-47.0) 11/01/19 12:55 MCV 90.2 fL (78.0-98.0) 11/01/19 12:55 Plt Count 226 thou/uL (130-400) 11/01/19 12:55 Neutrophils % 75.2 % (42.0-75.0) H 11/01/19 12:55 ABG pH 7.40 (7.35-7.45) 11/01/19 14:21 ABG pCO2 40.8 mmHg (35.0-45.0) 11/01/19 14:21 ABG pO2 144.4 mmHg (> 70.0) H 11/01/19 14:21 Sodium 133 mmol/L (136-145) L 11/01/19 12:55 Potassium 4.5 mmol/L (3.5-5.1) 11/01/19 12:55 Chloride 99 mmol/L (98-107) 11/01/19 12:55 Carbon Dioxide 28 mmol/L (23-31) 11/01/19 12:55 BUN 14 mg/dL (9.8-20.1) 11/01/19 12:55 Creatinine 1.22 mg/dL (0.6-1.1) H 11/01/19 12:55 Glucose 293 mg/dL (83-110) H 11/01/19 12:55 Calcium 9.0 mg/dL (7.8-10.44) 11/01/19 12:55 Total Bilirubin 0.5 mg/dL (0.2-1.2) 11/01/19 12:55 AST 20 U/L (5-34) 11/01/19 12:55 ALT 25 U/L (8-55) 11/01/19 12:55 Alkaline Phosphatase 80 U/L (40-110) 11/01/19 12:55 Creatine Kinase 365 U/L (29-168) H 11/01/19 12:55 Troponin I 0.022 ng/mL (< 0.028) 11/01/19 15:42 B-Natriuretic Peptide 20.1 pg/mL (0-100) 11/01/19 13:04 Serum Total Protein 7.2 g/dL (6.0-8.3) 11/01/19 12:55 Albumin 4.3 g/dL (3.4-4.8) 11/01/19 12:55 Lipase 65 U/L (8-78) 11/01/19 13:04 - EKG Interpretation EKG: Nonischemic - Radiology Interpretation Chest x-ray Status: image reviewed by me (Chronic findings. Nothing acute.), report reviewed by me Hospitalist H&P A/P - Problem (1) Chest pain Code(s): R07.9 - CHEST PAIN, UNSPECIFIED Status: Acute (2) Right upper quadrant abdominal tenderness Code(s): R10.811 - RIGHT UPPER QUADRANT ABDOMINAL TENDERNESS Status: Acute (3) VERNA (acute kidney injury) Code(s): N17.9 - ACUTE KIDNEY FAILURE, UNSPECIFIED Status: Acute (4) CAD (coronary artery disease) Code(s): I25.10 - ATHSCL HEART DISEASE OF [place] CORONARY ARTERY W/O ANG PCTRS Status: Chronic (5) COPD (chronic obstructive pulmonary disease) Status: Chronic (6) Chronic respiratory failure with hypoxia Code(s): J96.11 - CHRONIC RESPIRATORY FAILURE WITH HYPOXIA Status: Chronic (7) Depression Code(s): F32.9 - MAJOR DEPRESSIVE DISORDER, SINGLE EPISODE, UNSPECIFIED Status : Chronic (8) Dyslipidemia Code(s): E78.5 - HYPERLIPIDEMIA, UNSPECIFIED Status: Chronic (9) Hypertension Code(s): I10 - ESSENTIAL (PRIMARY) HYPERTENSION Status: Chronic Qualifiers: Hypertension type: essential hypertension Qualified Code(s): I10 - Essential (primary) hypertension (10) RANDY (obstructive sleep apnea) Code(s): G47.33 - OBSTRUCTIVE SLEEP APNEA (ADULT) (PEDIATRIC) Status: Chronic (11) CKD (chronic kidney disease), stage III Code(s): N18.3 - CHRONIC KIDNEY DISEASE, STAGE 3 (MODERATE) Status: Acute - Plan Plan: Keep the patient on observation. She had a negative cover test in the emergency department. She was so relieved by that information she considered going home. We will keep her on telemetry. Continue with serial troponins. We will check an abdominal ultrasound to evaluate the right upper quadrant to rule out cholecystitis. In the interim we will continue with home medications, nebulizers, chronic oxygen therapy we will give some gentle hydration due to slightly decreased GFR below baseline. Continue selected home medications.
[2019-11-01 19:41] LABS: Troponin I Less than 0.010 ng/mL (< 0.028)
[2019-11-01 21:13] VITALS: BMI 38.3
[2019-11-01] MEDS: Famotidine 20 MG TAB PO SCH (22:17)
[2019-11-02] MEDS ORDERED: Aspirin 325 MG TAB PO SCH (08:00)
[2019-11-02 08:33] VITALS: TEMP 97.5
[2019-11-02] MEDS: Famotidine 20 MG TAB PO SCH (08:34)
--- NOTE | 2019-11-02 09:10 | ULT ---
RIGHT UPPER QUADRANT ULTRASOUND: Date: 11/02/2019 PROVIDED CLINICAL HISTORY: Right upper quadrant pain. FINDINGS: The visualized portions of the pancreas appear normal. The IVC appears normal as visualized. Liver demonstrates increased echogenicity diffusely compatible with fatty infiltration. There is no e vidence for mass or intrahepatic biliary ductal dilatation. The common duct is not dilated. The gallbladder is decompressed, without evidence for gallstones. The gallbladder wall appears slight ly prominent, likely on the basis of decompression. The sewing machine mechanic reports a positive sonographic Mu rphy's sign, of uncertain significance. The right kidney demonstrates no evidence for hydronephrosis or mass. IMPRESSION: 1. No evidence for gallstones or gallbladder distention. Nonspecific gallbladder wall thickening lik chetna on the basis of nondistention. Nonspecific positive sonographic Ayon's sign. 2. Fatty infiltration of the liver. POS: STACY
[2019-11-02 12:06] VITALS: BP 159/76
--- NOTE | 2019-11-02 20:25 | DIS ---
DATE OF ADMISSION: 11/01/2019 DATE OF DISCHARGE: 11/02/2019 DISCHARGE DIAGNOSES: 1. Atypical chest pain. 2. Chronic obstructive pulmonary disease. 3. Obesity. 4. Right upper quadrant abdominal tenderness. 5. Acute kidney injury. 6. Coronary artery disease. 7. Chronic hypoxic respiratory failure, requiring oxygen. 8. Hypertension. 9. Hyperlipidemia. 10. History of depression. 11. Obstructive sleep apnea. 12. Chronic kidney disease, stage 3. HISTORY: The patient is a 73-year-old female, who presented via the emergency department. The patient reported that she awoke in the supervisor rose grading with pain across her clavicles and radiating into her back area. She presented to the emergency department, where her initial workup was notable for nonischemic EKG and negative troponins with no acute findings on chest x-ray. The patient's pain had essentially resolved and she described a "remnant" of residual discomfort. She queried herself the possibility of gallbladder. On her exam, she had diminished lung sounds and was slightly tender in the right upper quadrant. HOSPITAL COURSE: The patient was admitted to the hospital on telemetry. She had serial cardiac isoenzymes, which remained negative. It was noted that the patient had been admitted in April with chest pain and had a negative stress test at that time and it was felt that was not indicated, given the atypical nature of her pain. She did have a right upper quadrant ultrasound obtained, which showed no evidence of gallstones or gallbladder distention. She had a nonspecific positive sonographic Ayon sign and fatty infiltration of the liver. On repeat exam on the day of discharge, her abdominal tenderness had significantly improved. Vital signs were stable and she was eager for discharge to home. Of note, the patient did have a negative COVID screen. DISPOSITION: The patient is discharged to home. She is to continue her usual diet, activity level, and medications. She is to follow up with Dr. Mercer to consider whether further testing for gallbladder evaluation is indicated. She can return to the hospital at anytime she has the need to do so. Job ID: [id number]
== END 2019-11-02 13:45 | disposition home or self-care (01) ==
LOC: ERS 12:41 → 2NO 15:33
PROVIDERS: ADMIT Internal Medicine; ATTEND Internal Medicine
DX: R07.89 Other chest pain (principal); J44.9 Chronic obstructive pulmonary disease, unspecified; R10.811 Right upper quadrant abdominal tenderness; I12.9 Hypertensive chronic kidney disease with stage 1 through stage 4 chronic kidney disease, or unspecified chronic kidney disease; E11.22 Type 2 diabetes mellitus with diabetic chronic kidney disease; N18.3 Chronic kidney disease, stage 3 (moderate); N17.9 Acute kidney failure, unspecified; I25.10 Atherosclerotic heart disease of native coronary artery without angina pectoris; J96.11 Chronic respiratory failure with hypoxia; E78.5 Hyperlipidemia, unspecified; F32.9 Major depressive disorder, single episode, unspecified; G47.33 Obstructive sleep apnea (adult) (pediatric); K76.0 Fatty (change of) liver, not elsewhere classified; I25.2 Old myocardial infarction; E78.00 Pure hypercholesterolemia, unspecified; E66.9 Obesity, unspecified; Z68.38 Body mass index [BMI] 38.0-38.9, adult; Z87.891 Personal history of nicotine dependence; Z79.02 Long term (current) use of antithrombotics/antiplatelets; Z79.4 Long term (current) use of insulin; Z79.82 Long term (current) use of aspirin; Z79.899 Other long term (current) drug therapy; Z88.5 Allergy status to narcotic agent; Z95.5 Presence of coronary angioplasty implant and graft; Z20.828 Contact with and (suspected) exposure to other viral communicable diseases
CPT/HCPCS: 71045; 76705; 80053; 82550; 82805; 83690; 83880; 84484 ×2; 85025; 93005; 94760; 96365; 96375; 99285; U0002; 36415; G0378; J1956; J2930; J3475

== ENCOUNTER 2019-12-02 08:33 | Outpatient (CLI) | payer MEDICARE ==
--- NOTE | 2019-12-02 12:12 | NM ---
EXAM: NM Hida Scan W Drug PROVIDED CLINICAL HISTORY: Right upper quadrant pain COMPARISON: None FINDINGS: 5.12 mCi technetium 99m labeled mebrofenin was given intravenously, followed by anterior planar imagi ng over the abdomen for 1 hour. There is appropriate hepatic extraction of radiotracer, with excretion into the biliary system, gallbladder and bowel in a normal amount of time. Subsequent to the administration of 8 ounces of Ensure by mouth there is qualitatively poor excretion of radiotracer from the gallbladder into bowel. Calculated gallbladder ejection fraction is 23%. IMPRESSION: 1. No evidence for common or cystic duct obstruction. 2. Diminished gallbladder ejection fraction.
== END 2019-12-02 08:34 | disposition home or self-care (01) ==
LOC: NM 08:33
PROVIDERS: ATTEND Surgery
DX: R10.11 Right upper quadrant pain (principal); K82.8 Other specified diseases of gallbladder
CPT/HCPCS: 78227; A9537

== ENCOUNTER 2019-12-13 05:59 | Outpatient (CLI) | payer MEDICARE, OTHER ==
--- NOTE | 2019-12-13 11:11 | RAD ---
2 VIEW CHEST: Date: 12/13/2019 HISTORY: Preop. COMPARISON: 11/01/2019. FINDINGS: Heart size upper normal and stable. The lungs appear clear and unchanged in appearance. Chronic paren chymal changes appear stable. Osseous structures unremarkable. IMPRESSION: No evidence of acute process. POS: AGW
[2019-12-13 14:23] LABS: #Eosinphils 0.2 thou/uL (0.0-0.7); #Lymphocytes 2.2 thou/uL (1.20-3.40); #Monocytes 0.6 thou/uL (0.11-0.59); #Neutrophils 5.5 thou/uL (1.40-6.50); %Basophils 0.5 % (0.0-1.0); %Eosinophils 2.2 % (0.0-10.0); %Lymphocytes 25.9 % (21.0-51.0); %Monocytes 7.5 % (0.0-10.0); Hemoglobin 14.1 g/dL (12.0-16.0); Mean Corpuscular HGB CONC 32.5 g/dL (32.0-36.0); Mean Corpuscular Hemoglobin 30.4 pg (27.0-31.0); Mean Corpuscular Volume 93.5 fL (78.0-98.0); Mean Platelet Volume 8.1 fL (7.4-10.4); Platelet Count 239 thou/uL (130-400); RBC Distribution Width 11.7 % (11.5-14.5); Red Blood Cell (RBC) Count 4.63 mill/uL (4.20-5.40); White Blood Cell (WBC) Count 8.6 thou/uL (4.8-10.8)
[2019-12-13 14:54] LABS: ALT (SGPT) 18 U/L (8-55); AST (SGOT) 15 U/L (5-34); Albumin 4.2 g/dL (3.4-4.8); Alkaline Phosphatase 65 U/L (40-110); Anion Gap 15 mmol/L (10-20); BUN (Urea Nitrogen) 13 mg/dL (9.8-20.1); Bilirubin, Total 0.4 mg/dL (0.2-1.2); Calc. Creatinine Clearance 0 mL/min (70-130); Calcium 9.1 mg/dL (7.8-10.44); Carbon Dioxide 26 mmol/L (23-31); Chloride 101 mmol/L (98-107); Estimated GFR-MDRD 49; Globulin 2.5 g/dL (2.4-3.5); Glucose 134 mg/dL (83-110); Potassium 4.1 mmol/L (3.5-5.1); Protein, Total 6.7 g/dL (6.0-8.3); Sodium 138 mmol/L (136-145)
[2019-12-13 16:46] LABS: Hemoglobin A1c 9.9 % (4.0-6.0)
[2019-12-13 20:12] LABS: SARS-CoV-2 MS2 Positive; SARS-CoV-2 N Gene Negative; SARS-CoV-2 S Gene Negative; SARS-CoV-2 by NAA Not Detected (NotDetected); SARS-CoV-2 orf1ab Negative
--- NOTE | 2019-12-15 16:08 | EKG ---
Test Reason : Blood Pressure : / mmHG Vent. Rate : 063 BPM Atrial Rate : 063 BPM P-R Int : 158 ms QRS Dur : 096 ms QT Int : 442 ms P-R-T Axes : 073 -26 080 degrees QTc Int : 452 ms Normal sinus rhythm Septal infarct , age undetermined Abnormal ECG Confirmed by Jessica CRUZ ([id number]) on 12/15/2019 4:08:47 PM Referred By: BROOKE Confirmed By:Jessica CRUZ
== END 2019-12-13 06:00 | disposition home or self-care (01) ==
LOC: LABBT 05:59 → SCSRAD 06:00
PROVIDERS: ATTEND Surgery
DX: Z01.818 Encounter for other preprocedural examination (principal); Z20.828 Contact with and (suspected) exposure to other viral communicable diseases; J44.9 Chronic obstructive pulmonary disease, unspecified; I10 Essential (primary) hypertension; E78.5 Hyperlipidemia, unspecified; E11.9 Type 2 diabetes mellitus without complications; Z68.38 Body mass index [BMI] 38.0-38.9, adult
CPT/HCPCS: 71046; 80053; 83036; 85025; 87635; 93005; 93010; U0003

== ENCOUNTER 2022-09-20 17:58 | Emergency (ER) | payer MEDICARE, OTHER ==
[2022-09-20 18:39] LABS: #Basophils 0.1 thou/uL (0.0-0.2); #Eosinphils 0.3 thou/uL (0.0-0.7); #Monocytes 0.7 thou/uL (0.11-0.59); #Neutrophils 9.8 thou/uL (1.40-6.50); %Basophils 0.4 % (0.0-1.0); %Eosinophils 1.8 % (0.0-10.0); %Lymphocytes 20.6 % (21.0-51.0); %Monocytes 5.3 % (0.0-10.0); %Neutrophils 71.6 % (42.0-75.0); Hemoglobin 14.6 g/dL (12.0-16.0); Mean Corpuscular HGB CONC 33.6 g/dL (32.0-36.0); Mean Corpuscular Volume 92.1 fl (78.0-98.0); Mean Platelet Volume 9.8 fL (7.4-10.4); Platelet Count 263 10x3/uL (130-400); RBC Distribution Width 12.2 % (11.5-14.5); Red Blood Cell (RBC) Count 4.71 mill/uL (4.20-5.40); White Blood Cell (WBC) Count 13.6 10x3/uL (4.8-10.8)
[2022-09-20 19:00] LABS: ALT (SGPT) 23 U/L (8-55); AST (SGOT) 22 U/L (5-34); Albumin 4.1 g/dL (3.4-4.8); Alkaline Phosphatase 79 U/L (40-110); Anion Gap 13 mmol/L (10-20); BUN (Urea Nitrogen) 18 mg/dL (9.8-20.1); Bilirubin, Total 0.2 mg/dL (0.2-1.2); Calc. Creatinine Clearance 0 mL/min (70-130); Carbon Dioxide 27 mmol/L (23-31); Chloride 99 mmol/L (98-107); Estimated GFR 44; Globulin 3.1 g/dL (2.4-3.5); Glucose 333 mg/dL (83-110); Potassium 4.3 mmol/L (3.5-5.1); Protein, Total 7.2 g/dL (5.8-8.1); Sodium 135 mmol/L (136-145)
[2022-09-20 21:42] LABS: Troponin I 0.011 ng/mL (< 0.028)
== END 2022-09-20 22:04 | disposition home or self-care (01) ==
LOC: ERS 17:58
DX: R07.9 Chest pain, unspecified (principal); D72.829 Elevated white blood cell count, unspecified; E11.9 Type 2 diabetes mellitus without complications; I10 Essential (primary) hypertension; E78.00 Pure hypercholesterolemia, unspecified; Z87.891 Personal history of nicotine dependence
CPT/HCPCS: 36415; 71046; 80053; 84484; 85025; 93005

== ENCOUNTER 2022-10-11 09:30 | Outpatient (CLI) | payer OTHER | END 2022-10-11 09:31 | disposition home or self-care (01) | LOC: PET 09:30 | PROVIDERS: ATTEND Internal Medicine | DX: R91.8 Other nonspecific abnormal finding of lung field (principal) | CPT/HCPCS: 78815; A9552 ==

== ENCOUNTER 2024-12-27 09:30 | Outpatient (CLI) | payer OTHER | END 2024-12-27 09:31 | disposition home or self-care (01) | LOC: PET 09:30 | PROVIDERS: ATTEND Internal Medicine | DX: R91.8 Other nonspecific abnormal finding of lung field (principal) | CPT/HCPCS: 78815; A9552 ==

== ENCOUNTER 2025-02-17 08:27 | Day surgery (SDC) | payer OTHER ==
[2025-02-17 08:47] LABS: #Basophils 0.05 10x3/uL (0.0-0.2); #Eosinophils 0.28 10x3/uL (0.0-0.7); #Monocytes 0.57 10x3/uL (0.11-0.59); #Neutrophils 4.24 10x3/uL (1.40-6.50); %Basophils 0.6 % (0.0-1.0); %Eosinophils 3.4 % (0.0-10.0); %Lymphocytes 37.9 % (21.0-51.0); %Monocytes 6.9 % (0.0-10.0); %Neutrophils 51.0 % (42.0-75.0); Hematocrit 40.1 % (36.0-47.0); Hemoglobin 13.2 g/dL (12.0-16.0); Mean Corpuscular Hemoglobin 29.9 pg (27.0-31.0); Mean Corpuscular Volume 90.9 fL (78.0-98.0); Platelet Count 226 10x3/uL (130-400); Red Blood Cell (RBC) Count 4.41 mill/uL (4.20-5.40); White Blood Cell (WBC) Count 8.31 10x3/uL (4.8-10.8)
[2025-02-17 08:59] LABS: INR-International Normal Ratio 1.0; Prothrombin Time 13.0 sec (12.0-14.7)
[2025-02-17 09:00] LABS: PTT 29.6 sec (22.9-36.1)
[2025-02-17] MEDS ORDERED: Sodium Bicarbonate 2.5 MEQ/5 ML SDV ONE (10:06)
[2025-02-17] MEDS ORDERED: Lidocaine 1% w/Epinephrine 1:100K 20 ML VIAL ONE (10:06)
== END 2025-02-17 15:20 | disposition home or self-care (01) ==
LOC: CT 08:27
PROVIDERS: ATTEND Internal Medicine
PROC: 0BBF3ZX Excision of Right Lower Lung Lobe, Percutaneous Approach, Diagnostic (ICD-10-PCS; principal; 2025-02-17)
DX: C34.31 Malignant neoplasm of lower lobe, right bronchus or lung (principal); Z91.018 Allergy to other foods; Z88.6 Allergy status to analgesic agent
CPT/HCPCS: 32408; 36415; 71045; 77002; 77012; 85025; 85610; 85730; 88305; 88333; 88334; J2250; J3010

== ENCOUNTER 2025-03-25 12:42 | Outpatient (CLI) | payer OTHER ==
[2025-03-25 13:55] LABS: Estimated GFR - POC 52.0
== END 2025-03-25 12:43 | disposition home or self-care (01) ==
LOC: CT 12:42
PROVIDERS: ATTEND Radiology Radiation Oncology
DX: C34.31 Malignant neoplasm of lower lobe, right bronchus or lung (principal); R91.8 Other nonspecific abnormal finding of lung field
CPT/HCPCS: 36415; 71260; 82565

== ENCOUNTER 2025-04-01 08:34 | Outpatient (CLI) | payer OTHER | END 2025-04-01 08:35 | disposition home or self-care (01) | LOC: LABBT 08:34 | PROVIDERS: ATTEND Student in an Organized Health Care Education/Training Program | DX: Z01.810 Encounter for preprocedural cardiovascular examination (principal); C34.31 Malignant neoplasm of lower lobe, right bronchus or lung | CPT/HCPCS: 93005; 93010 ==